=== PATIENT | female | born 1945 | race African-American/Black ===

== ENCOUNTER → 2017-01-14 | Outpatient (CLI) | payer SELFPAY | LOC: COL.RAD 11:12 | DX: M17.11 Unilateral primary osteoarthritis, right knee (principal); M25.562 Pain in left knee; G89.29 Other chronic pain ==

== ENCOUNTER 2017-01-28 17:03 | Emergency (ER) | payer SELFPAY ==
[~2017-01-28] VITALS: Ht 165.1 cm; Wt 73.2 kg
[2017-01-28 17:13] VITALS: PULSE 91; TEMP 97.4
[2017-01-28] MEDS ORDERED: NORVASC 5MG5 MG/TAB PO (17:18)
[2017-01-28] MEDS ORDERED: GLUCOSAMIN 500 (17:18)
[2017-01-28] MEDS ORDERED: CRESTOR5 MG PO (17:19)
[2017-01-28] MEDS ORDERED: TURMERIC500 MG PO (17:19)
[2017-01-28] MEDS ORDERED: NORCO 325 MG-51 TAB PO (18:11)
[2017-01-28] MEDS ORDERED: VALIUM 2MG T2 MG/TAB PO (18:11)
[2017-01-28 19:27] VITALS: BP 145/76
== END 2017-01-28 19:28 | disposition home or self-care (01) ==
LOC: COL.ER 17:03
DX: M54.32 Sciatica, left side (principal); I10 Essential (primary) hypertension

== ENCOUNTER 2017-02-01 13:35 | Emergency (ER) | payer SELFPAY ==
[~2017-02-01] VITALS: Ht 165.1 cm; Wt 73.2 kg
[~2017-02-01 13:35] MED LIST: CRESTOR5 MG PO; GLUCOSAMIN 500; NORCO 325 MG-51 TAB PO; NORVASC 5MG5 MG/TAB PO; TURMERIC500 MG PO; VALIUM 2MG T2 MG/TAB PO
[2017-02-01 13:39] VITALS: TEMP 98.8
[2017-02-01 15:25] LABS: COLLECTION METHOD CLEAN CATCH
[2017-02-01 15:36] LABS: PH 6 (5-8); URINE APPEARANCE Clear; URINE BACTERIA None Seen /hpf; URINE BILIRUBIN Negative (NEGATIVE); URINE BLOOD 1+ (NEGATIVE); URINE COLOR Yellow; URINE GLUCOSE Negative (NEGATIVE); URINE KETONE Negative (NEGATIVE); URINE LEUKOCYTE ESTERASE Trace (NEGATIVE); URINE PROTEIN(semi-quant) Negative (NEGATIVE); URINE RBC 0-2 /hpf; URINE UROBILINOGEN Negative (NEGATIVE); URINE WBC 0-2 /hpf
[2017-02-01 17:39] LABS: BASO % 0.5 % (0.0-2.0); EOS % 0.7 % (0-4.0); GRAN # 1.8 (1.4-6.5); GRAN % 31.8 % (42.2-75.2); HEMATOCRIT 37.4 % (37.0-47.0); HEMOGLOBIN 12.6 g/dl (12.5-16.0); LYMPH # 3.4 (1.2-3.4); LYMPH % 60.1 % (20.0-51.0); MEAN CELL VOLUME 93 fl (80.0-100.0); MEAN CORPUSCULAR HEMOGLOBIN 31 pg (27.0-31.0); MEAN CORPUSCULAR HGB CONC 34 g/dl (33.0-37.0); MEAN PLATELET VOLUME 9.7 fl (7.4-10.4); MONO # 0.4 (0.1-0.6); MONO % 6.7 % (1.7-9.3); PLATELET COUNT 241 K/mm3 (130-400); RED BLOOD COUNT 4.02 M/mm3 (4.10-5.30); WHITE BLOOD COUNT 5.7 K/mm3 (4.8-10.8)
[2017-02-01] MEDS ORDERED: VALIUM 2MG T2 MG/TAB PO (17:45)
[2017-02-01] MEDS ORDERED: PERCOCET 325 MG1 TA2 PO (17:45)
[2017-02-01 17:49] LABS: ADJUSTED CALCIUM 8.8 mg/dL (8.4-10.2); ALBUMIN 4.6 gm/dL (3.5-5.0); BILIRUBIN,TOTAL 0.4 mg/dL (0.0-1.0); CALCIUM 9.3 mg/dL (8.4-10.2); CREATININE, serum 0.76 mg/dL (0.52-1.25); TOTAL PROTEIN 8.4 gm/dL (6.4-8.2)
[2017-02-01 18:11] VITALS: BP 169/74; PULSE 80
== END 2017-02-01 18:11 | disposition home or self-care (01) ==
LOC: COL.ER 13:35
PROVIDERS: Emergency Medicine
DX: M54.32 Sciatica, left side (principal)
CPT/HCPCS: J1170; J2060; J7030

== ENCOUNTER 2017-03-24 13:15 | Outpatient (RCR) | payer OTHER ==
[~2017-03-24 13:15] MED LIST changes: +PERCOCET 325 MG1 TA2 PO
== END 2017-03-27 11:11 | disposition home or self-care (01) ==
LOC: WSPT 13:15
DX: M54.32 Sciatica, left side (principal)
CPT/HCPCS: G0283-GP